=== PATIENT | male | born 1945 | race Caucasian/White ===

== ENCOUNTER 2024-10-18 03:03 | Emergency (ER) | payer OTHER ==
[~2024-10-18] VITALS: Ht 182.9 cm; Wt 90.7 kg
[2024-10-18 03:59] LABS: BASOPHILS ABSOLUTE AUTO 0.01 K/mm3 (0.00-0.23); BASOPHILS PERCENT AUTO 0 % (0-2); EOSINOPHILS PERCENT AUTO 0 % (0-6); Hemoglobin 12.8 g/dL (13.5-17.5); IMMATURE GRAN ABSOLUTE AUTO 0.02 K/mm3 (0.00-0.10); IMMATURE GRAN PERCENT AUTO 1 % (0-1); LYMPHOCYTES ABSOLUTE AUTO 0.31 K/mm3 (0.84-5.20); LYMPHOCYTES PERCENT AUTO 8 % (21-46); MONOCYTES ABSOLUTE AUTO 0.21 K/mm3 (0.16-1.47); MONOCYTES PERCENT AUTO 6 % (4-13); Mean Corpuscular HGB 29.1 pg (26.0-34.0); Mean Corpuscular HGB Conc 33.7 g/dL (31.5-36.5); Mean Corpuscular Volume 86 fL (80-100); Mean Platelet Volume 11.6 fL (9.1-12.4); NEUTROPHILS ABSOLUTE AUTO 3.21 K/mm3 (1.96-9.15); NEUTROPHILS PERCENT AUTO 85 % (41-73); Platelet Count 68 K/mm3 (150-400); RDW Standard Deviation 54.2 fL (35.1-46.3); White Blood Cell Count 3.76 K/mm3 (4.00-11.30)
[2024-10-18 04:09] LABS: Albumin, Blood 2.9 g/dL (3.4-5.0); Albumin/Globulin Ratio 0.9 (0.8-1.8); Bilirubin, Total 0.8 mg/dL (0.1-1.0); Bun/Creatinine Ratio 19.8 (12.0-20.0); Calcium, Blood 10.3 mg/dL (8.5-10.1); Creatinine, Blood 1.01 mg/dL (0.60-1.20); Globulin, Blood 3.3 g/dL (2.2-4.0); Potassium, Blood 3.5 mmol/L (3.5-5.5); Total Protein, Blood 6.2 g/dL (6.4-8.2)
[2024-10-18] MEDS ORDERED: Ondansetron HCl 2 MG / ML 2ML Vial IV ONE (04:45)
[2024-10-18] MEDS ORDERED: NS 1,000 ML IV SCH (04:45)
[2024-10-18 05:08] LABS: Magnesium, Blood 1.7 mg/dL (1.6-2.4)
[2024-10-18 05:26] LABS: Phosphorus, Blood 1.8 mg/dL (2.5-4.9)
[2024-10-18 05:30] LABS: Thyroid Stimulating Hormone 4.51 uIU/mL (0.360-4.800)
[2024-10-18] MEDS ORDERED: Potassium Phosphate Dibasic 30 MM in Dextrose 5% 500 ML IV ONE (05:45)
[2024-10-18] MEDS ORDERED: Magnesium Sulf 2 GM/Water 50ML 50 ML IV ONE (05:45)
[2024-10-18 05:46] LABS: CORONAVIRUS COVID-19 AG Negative (NEGATIVE); INFLUENZA A AG Negative (NEGATIVE); INFLUENZA B AG Negative (NEGATIVE)
[2024-10-18 06:12] LABS: Source, Urine Clean Catch
[2024-10-18 06:15] LABS: Appearance, Urine Cloudy (Clear); Bilirubin, Urine Neg (Neg); Blood, Urine 2+ (Neg); Color, Urine Yellow (P-Yellow); Glucose Qualitative, Urine Neg (Neg); Ketones, Urine Neg (Neg); Leukocyte Esterase, Urine 3+ (Neg); Nitrite, Urine Neg (Neg); Protein, Urine 3+ (Neg); Specific Gravity, Urine 1.025 (1.003-1.022); Urobilinogen, Urine NORM (Normal)
[2024-10-18 06:21] LABS: Bacteria Many /hpf; Red Blood Cells, Urine 0-2 /hpf (0-2); Squamous Epithelial Cells Rare /hpf (Few); White Blood Cells, Urine TNTC /hpf (0-5)
[2024-10-18] MEDS ORDERED: CefTRIAXone Sodium 1,000 MG in NS 50 ML IV ONE (06:40)
[2024-10-18] MEDS ORDERED: CEPH500 PO (08:32)
[2024-10-21] MEDS ORDERED: MONDOXYNE NL100 MG PO (08:42)
== END 2024-10-18 13:21 | disposition home or self-care (01) ==
LOC: ER 03:03
PROVIDERS: Emergency Medicine
DX: N39.0 Urinary tract infection, site not specified (principal); R53.1 Weakness; R79.89 Other specified abnormal findings of blood chemistry
CPT/HCPCS: 51798; 80053; 81001; 83735; 84100; 84443; 84484; 85025; 87077; 87086; 87186; 87428-QW; 93005; 93010; 96365; 96366; 96367; 96368; 96375; 99285-25; J0696; J2405; J3475; J7030; J7060

== ENCOUNTER 2024-11-25 20:09 | Emergency (ER) | payer OTHER ==
[~2024-11-25] VITALS: Ht 182.9 cm; Wt 86.2 kg
[~2024-11-25 20:09] MED LIST: CEPH500 PO; MONDOXYNE NL100 MG PO
[2024-11-25] MEDS ORDERED: METO50ER PO (20:28)
[2024-11-25] MEDS ORDERED: METF500 PO (20:28)
[2024-11-25] MEDS ORDERED: INSULIN GL300 UNIT/2 SC (20:28)
[2024-11-25] MEDS ORDERED: ASPIR 8181 M1 PO (20:29)
[2024-11-25] MEDS ORDERED: OMEP20ER PO (20:30)
[2024-11-25 21:12] LABS: Albumin, Blood 3.4 g/dL (3.4-5.0); Albumin/Globulin Ratio 1.2 (0.8-1.8); Bun/Creatinine Ratio 19.7 (12.0-20.0); Calcium, Blood 9.8 mg/dL (8.5-10.1); Creatinine, Blood 0.86 mg/dL (0.60-1.20); Globulin, Blood 2.8 g/dL (2.2-4.0); Magnesium, Blood 1.8 mg/dL (1.6-2.4); Potassium, Blood 3.4 mmol/L (3.5-5.5); Total Protein, Blood 6.2 g/dL (6.4-8.2)
[2024-11-25 21:16] LABS: BASOPHILS ABSOLUTE AUTO 0.02 K/mm3 (0.00-0.23); BASOPHILS PERCENT AUTO 1 % (0-2); EOSINOPHILS ABSOLUTE AUTO 0.06 K/mm3 (0.00-0.68); EOSINOPHILS PERCENT AUTO 2 % (0-6); Hematocrit 36.7 % (37.0-53.0); Hemoglobin 12.3 g/dL (13.5-17.5); IMMATURE GRAN ABSOLUTE AUTO 0.01 K/mm3 (0.00-0.10); IMMATURE GRAN PERCENT AUTO 0 % (0-1); LYMPHOCYTES ABSOLUTE AUTO 0.62 K/mm3 (0.84-5.20); LYMPHOCYTES PERCENT AUTO 18 % (21-46); MONOCYTES PERCENT AUTO 6 % (4-13); Mean Corpuscular HGB Conc 33.5 g/dL (31.5-36.5); Mean Corpuscular Volume 90 fL (80-100); Mean Platelet Volume 11.4 fL (9.1-12.4); NEUTROPHILS PERCENT AUTO 74 % (41-73); Platelet Count 119 K/mm3 (150-400); RDW Coefficient Variation 17.8 % (11.7-14.2); RDW Standard Deviation 58.6 fL (35.1-46.3); White Blood Cell Count 3.51 K/mm3 (4.00-11.30)
[2024-11-25] MEDS ORDERED: BACTRIM DS TAB1 EAC1 PO (21:29)
== END 2024-11-25 21:55 | disposition home or self-care (01) ==
LOC: ER 20:09
PROVIDERS: Student in an Organized Health Care Education/Training Program
DX: G56.01 Carpal tunnel syndrome, right upper limb (principal); L03.116 Cellulitis of left lower limb; L03.115 Cellulitis of right lower limb; E11.9 Type 2 diabetes mellitus without complications; K21.9 Gastro-esophageal reflux disease without esophagitis; I25.2 Old myocardial infarction; Z79.84 Long term (current) use of oral hypoglycemic drugs; Z79.82 Long term (current) use of aspirin; Z79.4 Long term (current) use of insulin; Z79.899 Other long term (current) drug therapy
CPT/HCPCS: 80053; 83735; 85025; 93005; 93010; 99284-25

== ENCOUNTER 2024-12-05 16:05 | Inpatient (IN) | payer OTHER ==
[~2024-12-05] VITALS: Ht 185.4 cm; Wt 82.5 kg
[~2024-12-05 16:05] MED LIST changes: +ASPIR 8181 M1 PO; +BACTRIM DS TAB1 EAC1 PO; +INSULIN GL300 UNIT/2 SC; +METF500 PO; +METO25ER PO; +OMEP20ER PO
[2024-12-05 16:58] LABS: BASOPHILS ABSOLUTE AUTO 0.01 K/mm3 (0.00-0.23); BASOPHILS PERCENT AUTO 0 % (0-2); EOSINOPHILS ABSOLUTE AUTO 0.01 K/mm3 (0.00-0.68); EOSINOPHILS PERCENT AUTO 0 % (0-6); Hematocrit 35.7 % (37.0-53.0); Hemoglobin 12.1 g/dL (13.5-17.5); IMMATURE GRAN ABSOLUTE AUTO 0.02 K/mm3 (0.00-0.10); IMMATURE GRAN PERCENT AUTO 1 % (0-1); LYMPHOCYTES ABSOLUTE AUTO 0.05 K/mm3 (0.84-5.20); LYMPHOCYTES PERCENT AUTO 1 % (21-46); MONOCYTES ABSOLUTE AUTO 0.11 K/mm3 (0.16-1.47); MONOCYTES PERCENT AUTO 3 % (4-13); Mean Corpuscular HGB 29.8 pg (26.0-34.0); Mean Corpuscular HGB Conc 33.9 g/dL (31.5-36.5); Mean Corpuscular Volume 88 fL (80-100); Mean Platelet Volume 12.6 fL (9.1-12.4); NEUTROPHILS ABSOLUTE AUTO 3.74 K/mm3 (1.96-9.15); NEUTROPHILS PERCENT AUTO 95 % (41-73); Platelet Count 77 K/mm3 (150-400); RDW Coefficient Variation 17.7 % (11.7-14.2); RDW Standard Deviation 57.8 fL (35.1-46.3); Red Blood Cell Count 4.06 M/mm3 (4.30-5.90); White Blood Cell Count 3.94 K/mm3 (4.00-11.30)
[2024-12-05 17:14] LABS: Albumin, Blood 3.1 g/dL (3.4-5.0); Albumin/Globulin Ratio 1.1 (0.8-1.8); Bun/Creatinine Ratio 22.9 (12.0-20.0); Calcium, Blood 9.4 mg/dL (8.5-10.1); Creatinine, Blood 1.18 mg/dL (0.60-1.20); Globulin, Blood 2.9 g/dL (2.2-4.0); Potassium, Blood 3.6 mmol/L (3.5-5.5)
[2024-12-05] MEDS ORDERED: Aspirin 325 MG Tab PO ONE (19:15)
[2024-12-05] MEDS ORDERED: Heparin Sodium 5000 Units/ML 1ML MDV IV ONE (19:20)
[2024-12-05] MEDS ORDERED: Heparin Sodium,Porcine/0.5 NS 500 ML IV SCH ×2 (19:25→20:25)
[2024-12-05 20:04] LABS: Source, Urine Clean Catch
[2024-12-05 20:14] LABS: Appearance, Urine Clear (Clear); Bilirubin, Urine Neg (Neg); Blood, Urine 1+ (Neg); Color, Urine Yellow (P-Yellow); Glucose Qualitative, Urine Neg (Neg); Ketones, Urine Neg (Neg); Leukocyte Esterase, Urine 1+ (Neg); Nitrite, Urine Neg (Neg); Protein, Urine 2+ (Neg); Urobilinogen, Urine 1+ (Normal)
[2024-12-05 20:18] LABS: Anti-Xa UFH, PHA Monitoring <0.10 IU/mL; International Normalized Ratio 1.39; Prothrombin Time Results 14.5 Sec (9.7-11.5)
[2024-12-05 20:25] LABS: Bacteria Mod /hpf; Squamous Epithelial Cells Rare /hpf (Few); Yeast/Fungi Urine Few /hpf
[2024-12-05 20:26] LABS: Mucus Light (0-Heavy)
--- NOTE | 2024-12-05 22:41 | NUR ---
REPORT RECEIVED FROM SIMRAN BORREGO RN AT 2228 AND AWAITING PT T/F TO ROOM 353.
[2024-12-05 23:02] VITALS: BP 109/63
[2024-12-05] MEDS ORDERED: NS 1,000 ML IV ONE (23:25)
[2024-12-05] MEDS ORDERED: Ondansetron HCl 2 MG / ML 2ML Vial IV PRN (23:25)
[2024-12-05] MEDS ORDERED: FLU VACC TS2024-25(6MOS UP)/PF 45 MCG/0.5 ML SYRINGE IM ONE (23:25)
[2024-12-05] MEDS ORDERED: CefTRIAXone Sodium 1,000 MG in NS 100 ML IV SCH (23:31)
[2024-12-06] MEDS ORDERED: Aspirin 81 MG Chew PO SCH
[2024-12-06] MEDS ORDERED: BACTRIM DS TAB1 EAC6 PO (00:34)
[2024-12-06] MEDS ORDERED: Acetaminophen 325 MG TABLET PO PRN (01:40)
[2024-12-06] MEDS ORDERED: FentaNYL Citrate 50 MCG/ML 2 ML Injection IV PRN (03:20)
--- NOTE | 2024-12-06 04:08 | NUR ---
ALERTED TO PT'S SUDDEN ONSET OF R.ARM/HAND PAIN THAT BEGINS IN HIS FINGERS AND RADIATES UP ARM, THROUGH BODY. HE APPEARED DIAPHORETIC, PALE AND TREMULOUS WHICH PT CONTRIBUTES TO SEVERE ARM PAIN. FENTANYL 25MCG Q4 PRN RX'D AND RECEIVED FOR MODERATE EFFECT. KPAD IN PLACE AND NOW HE'S REPORTING PAIN AT 4/10. EKG COMPLETED AND APPEARS UNCHANGED FROM ER (NSR W/BBB NOW AND ER SHOWED SAME BUT W/1ST DEGREE BLOCK WELL).
[2024-12-06 04:46] LABS: BASOPHILS ABSOLUTE AUTO 0.01 K/mm3 (0.00-0.23); BASOPHILS PERCENT AUTO 0 % (0-2); EOSINOPHILS ABSOLUTE AUTO 0.03 K/mm3 (0.00-0.68); EOSINOPHILS PERCENT AUTO 1 % (0-6); Hematocrit 36.5 % (37.0-53.0); Hemoglobin 12.1 g/dL (13.5-17.5); IMMATURE GRAN ABSOLUTE AUTO 0.03 K/mm3 (0.00-0.10); IMMATURE GRAN PERCENT AUTO 1 % (0-1); LYMPHOCYTES ABSOLUTE AUTO 0.08 K/mm3 (0.84-5.20); LYMPHOCYTES PERCENT AUTO 3 % (21-46); MONOCYTES ABSOLUTE AUTO 0.09 K/mm3 (0.16-1.47); MONOCYTES PERCENT AUTO 3 % (4-13); Mean Corpuscular HGB 29.8 pg (26.0-34.0); Mean Corpuscular HGB Conc 33.2 g/dL (31.5-36.5); Mean Corpuscular Volume 90 fL (80-100); Mean Platelet Volume 12.5 fL (9.1-12.4); NEUTROPHILS ABSOLUTE AUTO 2.55 K/mm3 (1.96-9.15); NEUTROPHILS PERCENT AUTO 91 % (41-73); Platelet Count 67 K/mm3 (150-400); RDW Coefficient Variation 17.9 % (11.7-14.2); RDW Standard Deviation 59.7 fL (35.1-46.3); Red Blood Cell Count 4.06 M/mm3 (4.30-5.90); White Blood Cell Count 2.79 K/mm3 (4.00-11.30)
[2024-12-06 04:48] VITALS: BP 110/61
[2024-12-06 05:06] LABS: Albumin, Blood 3.1 g/dL (3.4-5.0); Albumin/Globulin Ratio 1.1 (0.8-1.8); Bilirubin, Total 0.9 mg/dL (0.1-1.0); Bun/Creatinine Ratio 24.3 (12.0-20.0); Calcium, Blood 9.3 mg/dL (8.5-10.1); Creatinine, Blood 1.15 mg/dL (0.60-1.20); Globulin, Blood 2.7 g/dL (2.2-4.0); Potassium, Blood 3.5 mmol/L (3.5-5.5); Total Protein, Blood 5.8 g/dL (6.4-8.2)
[2024-12-06] MEDS ORDERED: Dose Adjust by Pharmacy XX STA ×3 (05:19→16:50)
[2024-12-06] MEDS ORDERED: Omeprazole 20 MG CapCR PO SCH (06:00)
[2024-12-06] MEDS ORDERED: Insulin Human Lispro 100 Units/ML 3ML Syringe SC SCH (07:30)
[2024-12-06 07:49] VITALS: BP 103/65
--- NOTE | 2024-12-06 07:51 | NUR ---
SUMMARY: PT T/F'D VIA GURNEY TO ROOM 353 AT 2254. HE WAS ORIENTED TO ROOM AND CALL SYSTEM AND IS BEDREST AT THIS TIME D/T INCREASED WEAKNESS AND FALLS PRECEEDING ADMIT. PT HAS BEEN UTILIZING W/C AT HOME BUT RECENTLY HASN'T BEEN ABLE TO TOLERATE WT.BEARING TO PIVOT T/F SAFELY. ABRASION NOTED TO HEAD FROM MOST RECENT FALL BUT HEAD CT WAS WNL. D.DIMER WAS 2.75 AND TROPS TRENDED UPWARD (473 THEN 569) BUT PE STUDY WAS NEGATIVE THIS SHIFT. HEPARIN GTT WAS COMMENCED AND INFUSES AT 15 UN/KG/HR (26.4 ML/HR). PT ALSO HAS POSSIBLE UTI W/IV ABX RECEIVED PER EMAR AND X1L NS INFUSING AT 100 ML/HR. HE HAD X2 IV'S REPLACED THIS SHIFT D/T BOTH PRIOR IV'S LEAKING AND NO LONGER PATENT. HE THEN C/O NEW ONSET SEVERE R.ARM PAIN RADIATING FROM FINGERTIPS UP ARM AND THROUGH BODY. HE APPEARED DIAPHORETIC, TREMULOUS AND PALE W/EKG PERFORMED SHOWING NO CHANGES FROM ER. FENTANYL WAS RX'D AND RECEIVED FOR MODERATE RELIEF AFTER TYLENOL WAS INEFFECTIVE. HE WAS INCONTINENT OF URINE T/O NOCTE BUT REPORTS HE ST.CATH QID AT BASELINE FOR RETENTION AND ONGOING UTI'S. PT REMAINS ON 2L O2 VIA NC W/SPO2 WNL BUT IS ON RA AT HOME. NO ACUTE CHANGES, VSS/AFEBRILE. REPORT PROVIDED TO DAY RN.
[2024-12-06] MEDS ORDERED: Metoprolol Succinate 50 MG TABCR PO SCH (09:00)
[2024-12-06] MEDS ORDERED: Insulin Glargine-Yfgn 100 Unit/mL 3 ML SYR SC SCH (09:00)
[2024-12-06 10:11] VITALS: BP 105/76
[2024-12-06] MEDS ORDERED: Metoprolol Succinate 25 MG TABCR PO SCH (10:20)
[2024-12-06] MEDS ORDERED: Furosemide 10 MG/ML 4ML Vial IV SCH (14:00)
[2024-12-06 15:24] VITALS: BP 104/74
[2024-12-06 19:25] VITALS: BP 109/69
--- NOTE | 2024-12-06 19:30 | NUR ---
SHIFT SUMMARY PT A&OX4. PT ADMITTED DUE TO CHF. PT RECEIVED LASIX TODAY. PT ON CONT HEPARIN DRIP, NO NEW ORDERS BY PHARMACY. PT REPORTS SOME PAIN, MANAGED PER EMAR. PT ON STRICT I'S AND O'S. PT ON TELE. PT ACHS. BLOOD SUGARS MANAGED WITH INSULIN CORRECTION. VSS. PT BED IN LOWEST POSITION, CALL LIGHT IN REACH. PT DENIED CHEST PAIN. PT VOIDING ADEQUATE. PT SBA TO TOILET.
[2024-12-06] MEDS ORDERED: NS 250 ML IV PRN (20:15)
[2024-12-07] VITALS (7 sets, daily range): BP systolic 100–113; BP diastolic 64–79
[2024-12-07] MEDS ORDERED: Melatonin 5 MG Tablet PO SCH (02:30)
--- NOTE | 2024-12-07 04:41 | NUR ---
SHIFT SUMMARY: PT AOX4 WITH SOME CONFUSION AND FORGETFULNESS. TOLERATING MEDICATIONS WELL. HAS DIFFICULTY EATING SOME OF HIS FOOD. PT EXECUTIVE STEWARD STATES THAT SHE PUREES FOOD AT HOME. TAKED MEDICATIONS FINE BUT ADMITS TO SOME DIFFICULTIES EVEN WITH SOFT BITESIZED MEAL. PT EXECUTIVE STEWARD ENDORSES THAT PT DOES HAVE SOME DIFFICULTY AND SLIGHT ASPIRATION AT HOME. PT HAD DIFFICULTY STAYING ASLEEP, MEDICATED PER EMR. PT IN BED SLEEPING, BED IN LOWEST POSITION, CALL LIGHT IN REACH. CONTINUING CARE.
[2024-12-07 05:23] LABS: Hematocrit 34.7 % (37.0-53.0); Mean Corpuscular HGB 30.5 pg (26.0-34.0); Mean Corpuscular HGB Conc 34.6 g/dL (31.5-36.5); Mean Corpuscular Volume 88 fL (80-100); Mean Platelet Volume 12.5 fL (9.1-12.4); Platelet Count 73 K/mm3 (150-400); RDW Coefficient Variation 17.4 % (11.7-14.2); RDW Standard Deviation 56.2 fL (35.1-46.3); Red Blood Cell Count 3.94 M/mm3 (4.30-5.90); White Blood Cell Count 2.13 K/mm3 (4.00-11.30)
[2024-12-07 05:41] LABS: Bun/Creatinine Ratio 28.7 (12.0-20.0); Calcium, Blood 8.9 mg/dL (8.5-10.1); Creatinine, Blood 1.01 mg/dL (0.60-1.20); Potassium, Blood 3.3 mmol/L (3.5-5.5)
[2024-12-07] MEDS ORDERED: Dose Adjust by Pharmacy XX STA (06:14)
[2024-12-07] MEDS ORDERED: Potassium Chloride 20 MEQ/15 ML UDC PO STA (07:22)
[2024-12-07] MEDS ORDERED: Empagliflozin 10 MG TAB PO SCH (09:00)
[2024-12-07] MEDS ORDERED: Furosemide 10 MG/ML 4ML Vial IV SCH (09:00)
[2024-12-07] MEDS ORDERED: Potassium Chloride 20 MEQ TabCR PO ONE (11:30)
[2024-12-07] MEDS ORDERED: Sertraline HCl 50 MG Tab PO SCH (16:00)
--- NOTE | 2024-12-07 18:00 | NUR ---
SHIFT SUMMARY PATIENT ALERT AND INTERACTIVE BUT VERY HARD OF HEARING. HEPARIN GTT DC'D PER CARDIOLOGY. PATIENT DIURESING WITH LASIX WITH GOOD RESPONSE.
[2024-12-08 03:21] VITALS: BP 112/77
[2024-12-08 06:16] LABS: Hematocrit 36.4 % (37.0-53.0); Hemoglobin 12.2 g/dL (13.5-17.5); Mean Corpuscular HGB 29.9 pg (26.0-34.0); Mean Corpuscular HGB Conc 33.5 g/dL (31.5-36.5); Mean Corpuscular Volume 89 fL (80-100); Mean Platelet Volume 12.4 fL (9.1-12.4); Platelet Count 75 K/mm3 (150-400); RDW Coefficient Variation 17.3 % (11.7-14.2); RDW Standard Deviation 57.1 fL (35.1-46.3); Red Blood Cell Count 4.08 M/mm3 (4.30-5.90); White Blood Cell Count 2.36 K/mm3 (4.00-11.30)
[2024-12-08 06:33] LABS: Bun/Creatinine Ratio 23.9 (12.0-20.0); Calcium, Blood 9.5 mg/dL (8.5-10.1); Creatinine, Blood 0.96 mg/dL (0.60-1.20); Potassium, Blood 3.8 mmol/L (3.5-5.5)
[2024-12-08 07:38] VITALS: BP 105/73
[2024-12-08] MEDS ORDERED: Losartan Potassium 25 MG Tab PO SCH (09:00)
[2024-12-08 11:12] VITALS: BP 114/67
[2024-12-08] MEDS ORDERED: FURO40 PO (14:13)
[2024-12-08] MEDS ORDERED: ALLO100 PO (14:14)
[2024-12-08] MEDS ORDERED: LORA10ER PO (14:15)
[2024-12-08] MEDS ORDERED: Crestor40 MG PO (14:15)
[2024-12-08] MEDS ORDERED: LACT PO (14:16)
[2024-12-08 15:17] VITALS: BP 102/59
--- NOTE | 2024-12-08 17:39 | NUR ---
SHIFT SUMMARY PATIENT ALERT AND INTERACTIVE BUT VERY HARD OF HEARING. PATIENT SPENT MOST OF DAY IN RECLINER. PATIENT SLEEPS IN RECLINER AT HOME. PATIENT ABLE TO AMBULATE FOR SHOWER. CONTINUE TO ATTEMPT TO DIURESE PATIENT BUT PATIENT FREQUENTLY REQUESTING FLUIDS. PATIENT FORGETFUL. DAUGHTER STATES THAT PATIENT IS CONFUSED.
[2024-12-08 19:11] VITALS: BP 110/72
[2024-12-08 23:41] VITALS: BP 117/77
[2024-12-09 04:56] VITALS: BP 113/77
--- NOTE | 2024-12-09 05:33 | NUR ---
PT A&OX4, COOPERATIVE. PERRL, SPEECH IS CLEAR. RELIABILITY SPECIALIST ARE EQUAL X 4. PPP TELE IN PLACE SR @71 WITH FIRST DEGREE BBB TRACE EDEMA BLE, ABD SOFT AND NONTENDER, BTX4. BLBS ARE CLEAR AN DUNLABORED, NO SOB NOTED. PURWICK IN PLACE DRAINING CLEAR YELLOW URINE. PT SLEPT IN RECLINER T/O THE NIGHT. DENIES PAIN OR NEEDS AT THIS TIME.
[2024-12-09 06:44] LABS: Bilirubin, Direct 0.2 mg/dL (0.0-0.3); Bilirubin, Indirect 0.5 mg/dL (0.1-0.7); Bilirubin, Total 0.7 mg/dL (0.1-1.0)
[2024-12-09 07:58] VITALS: BP 110/63
[2024-12-09 08:02] LABS: Bun/Creatinine Ratio 24.9 (12.0-20.0); Calcium, Blood 9.6 mg/dL (8.5-10.1); Creatinine, Blood 0.92 mg/dL (0.60-1.20); Potassium, Blood 3.8 mmol/L (3.5-5.5)
[2024-12-09] MEDS ORDERED: Spironolactone 12.5 MG TAB PO SCH (09:00)
[2024-12-09] MEDS ORDERED: Ciprofloxacin 500 MG Tab PO SCH (09:00)
[2024-12-09] MEDS ORDERED: Ezetimibe 10 MG Tab PO SCH (09:00)
[2024-12-09] MEDS ORDERED: Torsemide 20 MG TAB PO SCH (10:00)
--- NOTE | 2024-12-09 12:06 | NUR ---
MET WITH PATIENT TO DISCUSS CODE STATUS AND COMPLETE A POLST. REVIEWED OPTION AND IMPLICATIONS OF THOSE CHOICES. PATIENT REPORTED HE WOULD BE OK WITH CHEST COMPRESSIONS IF IT "ONLY TOOK A COUPLE COMPRESSIONS AND HE WOULDN'T END UP WITH BRAIN DAMAGE". WE DISCUSSED THE UNKNOWN OUTCOMES AND WHAT THE DIFFERENT OUTCOMES COULD LOOK LIKE. PATIENT ELECTED FOR DNR AND SELECTIVE TREATMENT. COMPLETED POLST, COPY SENT TO REGISTRY, MEDICAL RECORDS, AND ORIGIONAL PLACED IN CHART.
[2024-12-09 12:41] VITALS: BP 107/68
[2024-12-09 15:50] VITALS: BP 118/70
--- NOTE | 2024-12-09 16:09 | NUR ---
SHIFT SUMMARY PT IS A/OX4. HARD OF HEARING, HAS HEARING AIDS, AND MUMBLED SPEECH. PT IS A 1-2 PERSON ASSIST. PT IS ON RA, SATS MAINTAINING >92%. ON TELE RUNNING SINUS RYTHYM W/BBB, 1 DEGREE AV BLOCK, AND PAC IN THE 60'S. PURWICK IN PLACE. MINCED AND MOIST DIET, NECTAR THICK LIQUIDS, AND MEDS WHOLE W/ APPLESAUCE R/T HAVING LIMITED TEETH AND SWALLOWING DIFFICULTIES. PT IS PLEASANT AND COOPERATIVE WITH CARE AND CALLS APPROPRIATELY USING THE CALL LIGHT.
--- NOTE | 2024-12-09 18:15 | NUR ---
PT TRANSFERED TO ROOM 327.
--- NOTE | 2024-12-09 19:05 | NUR ---
TRANSFER NOTE PT TRANSFERED TO 327 FROM 353. PT TRANSFERED AT 1800 VIA BED. PT A&OX4. PT ADMITTED DUE TO CHF. PERSONAL BELONGINGS IN ROOM. PT ORIENTED TO ROOM/FALL PRECAUTIONS/ CALL LIGHT, TELE NOTIFIED TRANSFER. PT ON TELE. PT IS SBA WITH FWW. PT HAS MALE PERWICK DUE TO INC. PT IS IN BED. BED IN LOWEST POSITION, CALL LIGHT IN REACH.
[2024-12-09 21:54] VITALS: BP 98/68
[2024-12-09] MEDS ORDERED: Naproxen 500 MG Tab PO ONE (22:45)
[2024-12-09] MEDS ORDERED: Melatonin 5 MG Tablet PO ONE (22:45)
--- NOTE | 2024-12-09 22:45 | NUR ---
NEW T-ORDERS RECEIVED FROM THE ON-CALL HOSPITALIST NP. HIGGINBOTHAM: -NAPROXEN 500MG PO X1 -MELATONIN 5MG PO X1. ENTERED TO [employer], SEE EMAR.
[2024-12-10 00:34] VITALS: BP 107/62
--- NOTE | 2024-12-10 02:27 | NUR ---
SBAR GIVEN TO EVANS ANDERS WHO WILL RESUME CARE @1118. PROTEIN SCIENTIST AWARE.
[2024-12-10 04:23] VITALS: BP 105/65
[2024-12-10 05:06] LABS: Bun/Creatinine Ratio 28.8 (12.0-20.0); Creatinine, Blood 1.11 mg/dL (0.60-1.20)
[2024-12-10 07:36] VITALS: BP 120/78
[2024-12-10] MEDS ORDERED: SOAANZ20 M1 PO (11:47)
[2024-12-10] MEDS ORDERED: 1/2 NS 250ml250 ML (11:47)
[2024-12-10] MEDS ORDERED: CIPR500 PO (11:53)
[2024-12-10] MEDS ORDERED: EZET10 PO (11:54)
[2024-12-10] MEDS ORDERED: JARDIANCE10 MG PO (11:54)
[2024-12-10] MEDS ORDERED: HUMALOG KW100 UNIT/1 SC (12:07)
[2024-12-10] MEDS ORDERED: MELATONIN5 M1 PO (12:08)
[2024-12-10] MEDS ORDERED: LOSA25 PO (12:08)
[2024-12-10] MEDS ORDERED: SERT50 PO (12:09)
[2024-12-10] MEDS ORDERED: SPIRONOLACTONE1 EACH PO (12:10)
--- NOTE | 2024-12-10 15:35 | NUR ---
PRIMARY RN, LUIS ALFREDO, CALLED REPORT TO [facility] WHEN TRANSPORTATION ARRIVED. EVANS LOBATO, WAS TOLD BY SILVIO @ [facility] THAT SHE HAD NO RECORD OF PATIENT BEING ADMITTED. THERE IS ANOTHER PATIENT WITH A SIMILAR NAME WHO WAS ACCEPTED, BUT NO RECORD OF THIS PATIENT. ATTEMPTING TO REACH ROSIE JARAMILLO CM RN c ABOVE INFO.
[2024-12-10 16:40] VITALS: BP 98/63
--- NOTE | 2024-12-10 19:57 | NUR ---
DISCHARGE NOTE PT A&OX4. PT ADMITTED DUE TO CHF. PT IS SBA WITH FWW. PT INC OF URINE. PT CONT OF BM. VSS. PT REPORTS NO PAIN. PT ON ROOM AIR. IV D/C. TELE D/C. ATTEMPTED TO CALL DAUGHTER DURING SHIFT TO NOTIFY ABOUT TRANSFER TODAY, NO ANSWER. PT ON MINCED AND MOIST DIET. TAKES MEDS WHOLE WITH APPLESAUCE. PT DRINKS FLUIDS NECTURE THICK. FIELD LABORER SET UP TRANSFER FOR 1700. CALLED TO GIVE REPORT TO UVR AT 1445, UVR STATED "UNKNOWN OF PT." TRANSPORT WAS POSTPONED. DEPUTY ADMINISTRATOR NOTIFIED WITH FIELD LABORER. UVR CALLED FLOOR AT 1800 STATING "SEE APPROVAL OF PT AND PT IN SYSTEM AND CALLING FOR REPORT." DEPUTY ADMINISTRATOR NOTIFIED, GAVE REPORT TO UVR, PER UVR REQUEST. PT LEFT WITH SID. TRANSPORT CAME TO ESCORT PT AT 1825. PT TRANSFERED BY WHEELCHAIR. DISCHARGE INSTRUCTIONS LEFT WITH PT.
== END 2024-12-10 18:47 | DRG 698 ==
LOC: ER 16:05 → MEDS 16:06 → ERHOLD 16:06 → MEDS 22:50 → ENPENDDIS 12-10 17:25 → MEDS 12-10 18:47
PROVIDERS: Internal Medicine; Student in an Organized Health Care Education/Training Program; ADMIT Internal Medicine
PROC: 3E03329 Introduction of Other Anti-infective into Peripheral Vein, Percutaneous Approach (ICD-10-PCS; 2024-12-05)
PROC: 0T9B70Z Drainage of Bladder with Drainage Device, Via Natural or Artificial Opening (ICD-10-PCS; principal; 2024-12-06)
DX: T83.518A Infection and inflammatory reaction due to other urinary catheter, initial encounter (principal); A41.59 Other Gram-negative sepsis; I50.21 Acute systolic (congestive) heart failure; I21.A1 Myocardial infarction type 2; N39.0 Urinary tract infection, site not specified; J96.11 Chronic respiratory failure with hypoxia; I25.10 Atherosclerotic heart disease of native coronary artery without angina pectoris; Z99.3 Dependence on wheelchair; Z28.21 Immunization not carried out because of patient refusal; E11.9 Type 2 diabetes mellitus without complications; I10 Essential (primary) hypertension; K21.9 Gastro-esophageal reflux disease without esophagitis; D69.6 Thrombocytopenia, unspecified; F43.10 Post-traumatic stress disorder, unspecified; I44.7 Left bundle-branch block, unspecified; N40.1 Benign prostatic hyperplasia with lower urinary tract symptoms; R33.8 Other retention of urine; Z95.1 Presence of aortocoronary bypass graft; Z79.82 Long term (current) use of aspirin; Z79.899 Other long term (current) drug therapy; Z79.84 Long term (current) use of oral hypoglycemic drugs; Z88.8 Allergy status to other drugs, medicaments and biological substances
CPT/HCPCS: 36415; 70450; 71046; 71260; 80048; 80053; 81001; 82248; 82947; 83880; 84484; 85025; 85027; 85379; 85520; 85610; 87077; 87086; 87186; 92526; 92610; 93005; 93010; 93306; 94760; 96365; 96374; 96375; 96376; 97110; 97116; 97162; 97165; 97530; 97535; 99285-25; A9270; G0378; J0696; J1644; J1815; J1940; J3010; J7030; J7050; Q9967

== ENCOUNTER 2025-02-03 17:26 | Emergency (ER) | payer OTHER ==
[~2025-02-03] VITALS: Ht 185.4 cm; Wt 75.3 kg
[~2025-02-03 17:26] MED LIST changes: +1/2 NS 250ml250 ML; +ALLO100 PO; +BACTRIM DS TAB1 EAC6 PO; +CIPR500 PO; +Crestor40 MG PO; +EZET10 PO; +FURO40 PO; +HUMALOG KW100 UNIT/1 SC; +JARDIANCE10 MG PO; +LACT PO; +LORA10ER PO; +LOSA25 PO; +MELATONIN5 M1 PO; +SERT50 PO; +SOAANZ20 M1 PO; +SPIRONOLACTONE1 EACH PO
[2025-02-03 18:05] LABS: BASOPHILS ABSOLUTE AUTO 0.02 K/mm3 (0.00-0.23); BASOPHILS PERCENT AUTO 0 % (0-2); EOSINOPHILS ABSOLUTE AUTO 0.02 K/mm3 (0.00-0.68); EOSINOPHILS PERCENT AUTO 0 % (0-6); Hematocrit 41.4 % (37.0-53.0); Hemoglobin 14.1 g/dL (13.5-17.5); IMMATURE GRAN ABSOLUTE AUTO 0.06 K/mm3 (0.00-0.10); IMMATURE GRAN PERCENT AUTO 1 % (0-1); LYMPHOCYTES ABSOLUTE AUTO 1.25 K/mm3 (0.84-5.20); LYMPHOCYTES PERCENT AUTO 10 % (21-46); MONOCYTES ABSOLUTE AUTO 0.46 K/mm3 (0.16-1.47); MONOCYTES PERCENT AUTO 4 % (4-13); Mean Corpuscular HGB 29.1 pg (26.0-34.0); Mean Corpuscular HGB Conc 34.1 g/dL (31.5-36.5); Mean Corpuscular Volume 85 fL (80-100); Mean Platelet Volume 10.3 fL (9.1-12.4); NEUTROPHILS ABSOLUTE AUTO 10.66 K/mm3 (1.96-9.15); NEUTROPHILS PERCENT AUTO 85 % (41-73); Platelet Count 195 K/mm3 (150-400); RDW Coefficient Variation 14.5 % (11.7-14.2); RDW Standard Deviation 44.8 fL (35.1-46.3); Red Blood Cell Count 4.85 M/mm3 (4.30-5.90); White Blood Cell Count 12.47 K/mm3 (4.00-11.30)
[2025-02-03 18:26] LABS: Magnesium, Blood 1.9 mg/dL (1.6-2.4)
[2025-02-03 18:31] LABS: Albumin, Blood 2.6 g/dL (3.4-5.0); Albumin/Globulin Ratio 0.6 (0.8-1.8); Bilirubin, Total 0.7 mg/dL (0.1-1.0); Bun/Creatinine Ratio 25.8 (12.0-20.0); Calcium, Blood 10.3 mg/dL (8.5-10.1); Creatinine, Blood 1.82 mg/dL (0.60-1.20); Globulin, Blood 4.6 g/dL (2.2-4.0); Phosphorus, Blood 2.5 mg/dL (2.5-4.9); Potassium, Blood 3.4 mmol/L (3.5-5.5); Thyroid Stimulating Hormone 9.58 uIU/mL (0.360-4.800); Total Protein, Blood 7.2 g/dL (6.4-8.2)
[2025-02-03 18:51] LABS: Free Thyroxine 0.95 ng/dL (0.70-1.60)
[2025-02-03 18:53] LABS: Triiodothyronine, Free 1.38 pg/mL (2.18-3.98)
[2025-02-03 18:56] LABS: Adenovirus Not Detected (NOT DETECT); Bordetella pertussis Not Detected (NOT DETECT); Chlamydophila pneumoniae Not Detected (NOT DETECT); Coronavirus 229E Not Detected (NOT DETECT); Coronavirus HKU1 Not Detected (NOT DETECT); Coronavirus NL63 Not Detected (NOT DETECT); Coronavirus OC43 Not Detected (NOT DETECT); Human Metapneumovirus Not Detected (NOT DETECT); Human Rhinovirus/Enterovirus Not Detected (NOT DETECT); Influenza A/2009-H1 Not Detected (NOT DETECT); Influenza A/H1 Not Detected (NOT DETECT); Influenza A/H3 Not Detected (NOT DETECT); Influenza B Not Detected (NOT DETECT); Mycoplasma pneumoniae Not Detected (NOT DETECT); Parainfluenza Virus 1 Not Detected (NOT DETECT); Parainfluenza Virus 2 Not Detected (NOT DETECT); Parainfluenza Virus 3 Not Detected (NOT DETECT); Parainfluenza Virus 4 Not Detected (NOT DETECT); Respiratory Syncytial Virus Not Detected (NOT DETECT); SARS-Cov-2 (COVID-19), BioFire Not Detected (NOT DETECT)
[2025-02-03] MEDS ORDERED: NS 1,000 ML IV SCH (21:00)
[2025-02-03 23:26] LABS: Source, Urine Clean Catch
[2025-02-03 23:38] LABS: Appearance, Urine Cloudy (Clear); Bilirubin, Urine Neg (Neg); Blood, Urine 3+ (Neg); Color, Urine Yellow (P-Yellow); Glucose Qualitative, Urine Neg (Neg); Ketones, Urine Neg (Neg); Leukocyte Esterase, Urine 2+ (Neg); Nitrite, Urine Pos (Neg); Protein, Urine 3+ (Neg); Specific Gravity, Urine 1.015 (1.003-1.022); Urobilinogen, Urine NORM (Normal)
[2025-02-03 23:56] LABS: Bacteria Many /hpf; Red Blood Cells, Urine 0-2 /hpf (0-2); Squamous Epithelial Cells Mod /hpf (Few); White Blood Cells, Urine 50-100 /hpf (0-5)
[2025-02-04] MEDS ORDERED: CEPH500 PO (01:14)
[2025-02-04] MEDS ORDERED: CefTRIAXone Sodium 1,000 MG in NS 100 ML IV ONE (01:15)
== END 2025-02-04 02:18 | disposition home or self-care (01) ==
LOC: ER 17:26
PROVIDERS: Student in an Organized Health Care Education/Training Program
DX: N39.0 Urinary tract infection, site not specified (principal); R53.1 Weakness; R79.89 Other specified abnormal findings of blood chemistry; E11.9 Type 2 diabetes mellitus without complications; E78.5 Hyperlipidemia, unspecified; Z87.891 Personal history of nicotine dependence; Z79.4 Long term (current) use of insulin; Z79.899 Other long term (current) drug therapy; Z79.84 Long term (current) use of oral hypoglycemic drugs; Z79.82 Long term (current) use of aspirin; Z88.8 Allergy status to other drugs, medicaments and biological substances
CPT/HCPCS: 0202U; 71046; 74176; 80053; 81001; 83690; 83735; 84100; 84439; 84443; 84481; 85025; 87077; 87086; 87186; 96361; 96365; 99284-25; J0696; J7030

== ENCOUNTER 2025-02-09 10:13 | Inpatient (IN) | payer OTHER, MEDICARE ==
[2025-02-09] VITALS (8 sets, daily range): BP systolic 70–100; BP diastolic 34–69
[~2025-02-09] VITALS: Ht 188 cm; Wt 81.8 kg
[2025-02-09 10:36] LABS: BASOPHILS ABSOLUTE AUTO 0.02 K/mm3 (0.00-0.23); BASOPHILS PERCENT AUTO 0 % (0-2); EOSINOPHILS ABSOLUTE AUTO 0.02 K/mm3 (0.00-0.68); EOSINOPHILS PERCENT AUTO 0 % (0-6); Hematocrit 39.5 % (37.0-53.0); Hemoglobin 13.3 g/dL (13.5-17.5); IMMATURE GRAN ABSOLUTE AUTO 0.06 K/mm3 (0.00-0.10); IMMATURE GRAN PERCENT AUTO 0 % (0-1); LYMPHOCYTES ABSOLUTE AUTO 0.24 K/mm3 (0.84-5.20); LYMPHOCYTES PERCENT AUTO 2 % (21-46); MONOCYTES ABSOLUTE AUTO 0.11 K/mm3 (0.16-1.47); MONOCYTES PERCENT AUTO 1 % (4-13); Mean Corpuscular HGB 29.1 pg (26.0-34.0); Mean Corpuscular HGB Conc 33.7 g/dL (31.5-36.5); Mean Corpuscular Volume 86 fL (80-100); Mean Platelet Volume 10.9 fL (9.1-12.4); NEUTROPHILS ABSOLUTE AUTO 13.13 K/mm3 (1.96-9.15); NEUTROPHILS PERCENT AUTO 97 % (41-73); Platelet Count 135 K/mm3 (150-400); RDW Coefficient Variation 15.3 % (11.7-14.2); RDW Standard Deviation 47.5 fL (35.1-46.3); Red Blood Cell Count 4.57 M/mm3 (4.30-5.90); White Blood Cell Count 13.58 K/mm3 (4.00-11.30)
[2025-02-09 10:58] LABS: Albumin, Blood 2.3 g/dL (3.4-5.0); Albumin/Globulin Ratio 0.5 (0.8-1.8); Bilirubin, Total 0.6 mg/dL (0.1-1.0); Bun/Creatinine Ratio 21.8 (12.0-20.0); Calcium, Blood 10.8 mg/dL (8.5-10.1); Creatinine, Blood 1.79 mg/dL (0.60-1.20); Globulin, Blood 4.2 g/dL (2.2-4.0); Potassium, Blood 3.9 mmol/L (3.5-5.5); Total Protein, Blood 6.5 g/dL (6.4-8.2)
[2025-02-09 11:03] LABS: Source, Urine Straight Cath
[2025-02-09 11:15] LABS: Appearance, Urine Turbid (Clear); Bilirubin, Urine Neg (Neg); Blood, Urine 4+ (Neg); Color, Urine Yellow (P-Yellow); Glucose Qualitative, Urine 2+ (Neg); Ketones, Urine Neg (Neg); Leukocyte Esterase, Urine 3+ (Neg); Nitrite, Urine Pos (Neg); Protein, Urine 2+ (Neg); Specific Gravity, Urine 1.015 (1.003-1.022); Urobilinogen, Urine NORM (Normal)
[2025-02-09 11:33] LABS: Squamous Epithelial Cells Rare /hpf (Few)
[2025-02-09 11:34] LABS: Bacteria Many /hpf; Red Blood Cells, Urine 50-100 /hpf (0-2); White Blood Cells, Urine 50-100 /hpf (0-5)
[2025-02-09] MEDS ORDERED: CefTRIAXone Sodium 1,000 MG in NS 100 ML IV ONE (11:40)
[2025-02-09] MEDS ORDERED: NS 1,000 ML IV SCH ×3 (11:50→16:10)
[2025-02-09] MEDS ORDERED: Insulin Human Lispro 100 Units/ML 3ML Syringe SC SCH (16:30)
[2025-02-09] MEDS ORDERED: NS 500 ML IV ONE ×2 (18:30→21:10)
[2025-02-09] MEDS ORDERED: ZINC OXIDE/PETROLATUM, YELLOW 1 APPLIC/71 GM PASTE TOP PRN (18:45)
--- NOTE | 2025-02-09 20:01 | NUR ---
ADMIT NOTE PATIENT BROUGHT UP FROM ER. PHOTOS TAKEN OF WOUNDS TO BACK AND BUTTOCKS. MEPILEX'S PLACED. RED/BOGGY HEELS MEPILEX PLACED TO BILATERAL HEELS. MAIN FLUDIS STARTED. VITALS TAKEN AND WERE RUNNING SOFT IN ER BUT INITALLY ON UNIT READ 91/69, HR LOW 100'S, OXYGEN SATS IN THE MID 80'S ON ROOM AIR. SLIGHLTY TACHYPNIC AT 20. 2L NC PLACED AND BROUGHT SATS UP TO 91%. NOTIFIED DR. CRYSTAL WHO ORDERED 500 ML BOLUS AND THEN TO CONTINUE MAINT FLUDIS, BEING CONSERVATIVE DUE TO HEART FAILURE. HE ALSO ORDERED PATEINT TO BE TRANSFERRED TO PCU TO THE INCREASE IN OXYGEN NEED, DECREASE IN B/P, AND SLIGHT INCREASE IN LACTIC FROM 4.9 TO 5.1. AND TO NOTIFY CHEMIST ORGANIC IF PATIENT SEEMS TO WORSEN TO COME RE-EVALUATE. PENDING BED IN PCU. PT HOB SLIGHTLY ELEVATED. DAUGHTER IS AT BEDSIDE DURING BEDSIDE SHIFT REPORT. WAS UNABLE TO COMPLETE HEALTH HISTORY AND MED-REC INTIALLY DUE TO PATIENT BEING POORT HISTORIAN AND DAUGHTER NOT AT BEDSIDE. PT A/OX2. CONFUSED ON SITUATION AND TIME, STATES IT WAS "1994" . ER REPORTED THEY HAD TO STRAIGHT CATH PATIENT DUE TO RETENTION, NOT DOCUMENTED IN THEIR NOTE, SO UNSURE OF TIME OR VOLUME. DID NOT HAVE TIME THIS SHIFT TO GET BLADDER SCAN, PASSED ON TO [employer] INTER[employer] CONTRACTING SUPPORT SPECIALIST IF SHE COULD COLLECT ONE. PATINET ON MALE PUREWICK WITH MINIMAL OUTPUT. INCONTINENT OF BOWEL AND BLADDER OF THE LAST MONTH PER DAUGHTER WHERE HE HAS JUST SEEMED TO BE CONTINUOULSY DECLINING. PT WAS AMBULATING WITH WALKER AND SHOWERING/DRESSING HIMSELF A MONTH AGO.
--- NOTE | 2025-02-09 20:32 | NUR ---
NEW T-ORDER FOR TYLENOL PO PRN 650MG Q6HRS RECEIVED FROM THE ON-CALL HOSPITALIST DR. MACARIO. ENTERED TO [employer], SEE EMAR.
[2025-02-09] MEDS ORDERED: Acetaminophen 325 MG TABLET PO PRN (20:35)
[2025-02-09] MEDS ORDERED: Famotidine 20 MG Tab PO SCH (21:00)
[2025-02-09] MEDS ORDERED: Lactobacil 2-S.Thermo-Bifido 1 1 Cap PO SCH (21:00)
[2025-02-09] MEDS ORDERED: Heparin Sodium,Porcine 5,000 UNIT/0.5 ML SDV SC SCH (21:00)
[2025-02-10] VITALS (19 sets, daily range): BP systolic 89–111; BP diastolic 55–78
[2025-02-10 05:03] LABS: Bun/Creatinine Ratio 24.7 (12.0-20.0); Calcium, Blood 9.7 mg/dL (8.5-10.1); Creatinine, Blood 1.62 mg/dL (0.60-1.20); Potassium, Blood 3.7 mmol/L (3.5-5.5)
--- NOTE | 2025-02-10 05:51 | NUR ---
PT'S RECEIVED 500ML BOLUS OF NS ON ARRIVAL TO THE FLOOR.BP REMAIN SOFT, SBP 90S-100S.JUNCTIONAL HEART RHYTHM ON THE MONITOR,HR 90'S-100'S.DR PICHARDO NOTIFIED OF THE JUNCTIONAL RHYTHM,NO NEW ORDER GIVEN. STATES TO MONITOR PT.PT VOIDED LITTLE AMOUNT OF URINE AT MIDNIGHT,BLADDER SCANNER REVEALED A PVR OF 399ML.PT STRAIGHT CATHED,400ML OF YELLOW URINE OBTAINIED.CALL LIGHT AND PT'S ITEMS WITHIN REACH.MONITORING ONGOING PER CARE PLAN .
[2025-02-10] MEDS ORDERED: NS 1,000 ML IV SCH ×2 (08:00→19:50)
[2025-02-10] MEDS ORDERED: CefTRIAXone Sodium 1,000 MG in NS 100 ML IV SCH (12:00)
[2025-02-10 16:01] LABS: Bun/Creatinine Ratio 25.5 (12.0-20.0); Calcium, Blood 9.2 mg/dL (8.5-10.1); Creatinine, Blood 1.49 mg/dL (0.60-1.20); Potassium, Blood 3.7 mmol/L (3.5-5.5)
--- NOTE | 2025-02-10 16:37 | NUR ---
DR THOMAS OF [place].3
--- NOTE | 2025-02-10 19:25 | NUR ---
ASSUMPTION OF CARE PT AWAKE AND ALERT WATCHING TV.PLAN OF CARE REVIEWED.PT DENIES PAIN,DENIES NEEDS.CALL LIGHT AND PTS ITEMS WITHIN REACH.MONITORING ONGOING PER CAREPLAN.
[2025-02-11] VITALS (8 sets, daily range): BP systolic 97–111; BP diastolic 61–68
[2025-02-11 05:38] LABS: Bun/Creatinine Ratio 24.6 (12.0-20.0); Calcium, Blood 8.8 mg/dL (8.5-10.1); Creatinine, Blood 1.34 mg/dL (0.60-1.20); Potassium, Blood 3.7 mmol/L (3.5-5.5)
--- NOTE | 2025-02-11 06:48 | NUR ---
PT MONITORED DURING THE SHIFT,VITAL SIGNS STABLE.PT REPORTS THAT HE FEELS BETTER.STRAIGHT CATHED ONCE THIS SHIFT FOR PVR OF 401ML.LATER IN THE SHIFT PT WAS INCONTINENT OF LARGE AMOUNT OF URINE THAT SOAKED THE BRIEF,PAD AND WENT THROUGHT THE SHEETS.PT INCONTINENT OF BOWEL MULTIPLE TIMES DURING THE SHIFT. PLACED A MALE PUREWICK FOR URINE COLLECTION.PT DENIES PAIN,DENIES NEEDS.CALL LIGHT AND PT'S ITEMS WITHIN REACH.BED ALARM IN USE FOR FALL PREVENTION SAFETY.
[2025-02-11] MEDS ORDERED: Metoprolol Succinate 25 MG TABCR PO SCH (09:00)
[2025-02-11] MEDS ORDERED: Empagliflozin 10 MG TAB PO SCH (09:00)
--- NOTE | 2025-02-11 10:14 | NUR ---
SHIFT UPDATE AND TRANSFER NOTE PT REPORT GIVEN TO IVETT KRUEGER ON MEDICAL FLOOR AND DAUGHTER, BENIGNO UPDATED TO PT STATUS AND TRANSFER. PT TRANSFERRED TO ROOM 346 VIA BED WITH ALL PERSONAL BELONGINGS BY VTC TECHNICIAN X3. DAUGHTER NOTIFIED OF PT EVAL AND SUGGESTION OF SHORT TERM PLACEMENT IN A FACILITY TO CONTINUE PT AND REHABILITATION FOR INCREASED STRENGTH. DAUGHTER IS AGREEABLE TO THIS PLAN AND REQUESTS THAT CASE MANAGEMENT REACH OUT THROUGH [facility]. CASE MANAGEMENT CONSULTED THIS MORNING FOR ASSISTANCE COORDINATING CARE.
[2025-02-11] MEDS ORDERED: Meropenem 1,000 MG in NS 100 ML IV SCH (12:00)
--- NOTE | 2025-02-11 19:29 | NUR ---
PT TRANSFERRED TO ROOM THIS AM. PLEJAYE COOP. PLACED NEW PUREWICK SYSTEM, RETURENED TELE, D/C'D. PT DENIES PAIN AT THIS TIME. ON R.A. RESP EASY, UNLABORED. VISITING PLEASANTLY. NO NEW CONCERNS NOTED. BED INLOW POSITION, CALLLITE IN REACH, CALLS APPROP
--- NOTE | 2025-02-12 04:03 | NUR ---
SHIFT SUMMARY PATIENT HAS APPEARED TO SLEEP COMFORTABLY TONIGHT. IV ABX HAVE INFUSED WITHOUT COMPLICATIONS. C PAP IS IN PLACE. VITAL SIGNS HAVE BEEN STABLE. PATIENT HAS A PUREWICK IN PLACE. CALL LIGHT IS WITHIN REACH AND BED ALARM IS SET. SAFETY PRECAUTIONS ARE BEING MAINTAINED.
[2025-02-12 07:10] LABS: Hematocrit 31.4 % (37.0-53.0); Hemoglobin 10.5 g/dL (13.5-17.5); Mean Corpuscular HGB 29.2 pg (26.0-34.0); Mean Corpuscular HGB Conc 33.4 g/dL (31.5-36.5); Mean Corpuscular Volume 87 fL (80-100); Mean Platelet Volume 10.6 fL (9.1-12.4); Platelet Count 122 K/mm3 (150-400); RDW Coefficient Variation 15.4 % (11.7-14.2); RDW Standard Deviation 48.7 fL (35.1-46.3)
[2025-02-12 07:24] VITALS: BP 106/74
[2025-02-12 07:24] LABS: Bun/Creatinine Ratio 26.9 (12.0-20.0); Calcium, Blood 9.6 mg/dL (8.5-10.1); Creatinine, Blood 1.19 mg/dL (0.60-1.20); Potassium, Blood 3.2 mmol/L (3.5-5.5)
[2025-02-12] MEDS ORDERED: Potassium Chloride 20 MEQ TabCR PO ONE (07:40)
[2025-02-12] MEDS ORDERED: Ezetimibe 10 MG Tab PO SCH (09:00)
[2025-02-12] MEDS ORDERED: Losartan Potassium 25 MG Tab PO SCH (09:00)
[2025-02-12] MEDS ORDERED: Spironolactone 12.5 MG TAB PO SCH (09:00)
--- NOTE | 2025-02-12 17:25 | NUR ---
PT PLEASANT TODAY. DID TALK WITH DAUGHTER RE PLACEMENT NOTATIONS. SHE IS BELIEVING SHE CAN CARE FOR PT AND ALSO HAS ADDITIONAL HELP FOR EVENINGS. ENCOURAGED PT TO BE ON HIS SIDES, TO RELEIVE THE PRESSURE ON BOTTOM. THIS TO ASSIST IN HEALING OF WOUNDS. NO OTHER CONCERNS NOTED. BED IN LOW POSITION, CALL LITE IN REACH, CALLS APPROP
[2025-02-12 17:30] VITALS: BP 112/76
--- NOTE | 2025-02-13 03:53 | NUR ---
SHIFT SUMMARY PATIENT APPPERS TO BE RESTING COMFORTABLY TONIGHT. WOUND CARE WAS DONE. COCCXY WOUND IS EXCORIATED AND WAS BLEEDING A LITTLE. PUREWICK CATHETER IS IN PLACE. VITAL SIGNS ARE STABLE. IV ABX HAVE INFUSED WITHOUT COMPLICATIONS. PATIENT HAS HIS CALL LIGHT WITHIN REACH AND THE BED ALARM IS SET. SAFETY PRECAUTIONS ARE BEING MAINTAINED.
[2025-02-13 05:40] VITALS: BP 90/70
[2025-02-13 07:07] LABS: Bun/Creatinine Ratio 30.5 (12.0-20.0); Calcium, Blood 10.3 mg/dL (8.5-10.1); Creatinine, Blood 1.05 mg/dL (0.60-1.20); Potassium, Blood 3.7 mmol/L (3.5-5.5)
--- NOTE | 2025-02-13 07:28 | NUR ---
ASSUMPTION OF CARE: THIS RN ASSUMED CARE OF PATIENT. ASLEEP DURING SHIFT CHANGE. LYING SUPINE IN BED. BREATHING EVEN AND UNLABORED ON ROOM AIR. BED IN LOWEST POSITION. CALL LIGHT WITHIN REACH. ACUTE NEEDS MET.
[2025-02-13 07:48] VITALS: BP 88/67
[2025-02-13] MEDS ORDERED: Potassium Chloride 10 Meq Tablet SA PO SCH (08:00)
[2025-02-13] MEDS ORDERED: Sertraline HCl 50 MG Tab PO SCH (09:00)
[2025-02-13] MEDS ORDERED: Aspirin 81 MG Chew PO SCH (09:00)
[2025-02-13] MEDS ORDERED: Furosemide 40 MG Tab PO SCH (09:00)
[2025-02-13] MEDS ORDERED: POTA10T PO (12:26)
[2025-02-13] MEDS ORDERED: MEROPENEM500 M1 IV (12:26)
[2025-02-13] MEDS ORDERED: PERISHIELD OIN452 GM TOP (12:28)
[2025-02-13 15:17] VITALS: BP 106/70
--- NOTE | 2025-02-13 16:53 | NUR ---
DISCHARGE SUMMARY: A&Ox3-4. PLEASANT AND COOPERATIVE WITH MOST CARE. HAS NOT UTILIZED CALL LIGHT SYSTEM THIS SHIFT. ABLE TO ADVOCATE NEEDS EFFECTIVELY. WHEELCHAIR AT BASELINE; HAS NOT AMBULATED. 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 LBM TODAY. MEDS WHOLE c FLUIDS. C/O CHRONIC PAIN R/T RIB Fx's. ACCEPTED TO [facility]. REPORT TO [facility]. IV x2 AND PUREWICK REMOVED BY FIDEL CERVANTES. ATTENDS CHANGED AND PT TRANSFERRED TO W/C VIA [facility]. LEFT FLOOR AT 1615 WITH ALL BELONGINGS AND DISCHARGE PACKET, ESCORTED BY [facility] VIA WHEELCHAIR.
--- NOTE | 2025-02-13 17:53 | NUR ---
CALL FROM [facility] NURSE @ [facility]: PER MED REC, PT SUPPOSED TO HAVE IV ABx q8h x5 DAYS AND WAS SENT WITHOUT LINE. NOT NOTIFIED OF THIS BY [facility] TESTER AND CHARGE, WHO DID MED REC, WAS UNAWARE, WELL. CALL TO DR BONILLA PADRON STATED YES, PT TO HAVE IV ABx Q8H x5 DAYS. CALL TO [facility]: PIV WOULD SUFFICE. NOBODY THERE RIGHT NOW ABLE TO PLACE PIV. LAST DOSE @ 1330; SHE WILL ASK DON OR PLACE ONE IF ABLE.
== END 2025-02-13 16:36 | DRG 871 ==
LOC: ER 10:13 → MEDS 14:57 → PCU 20:00 → MEDS 02-11 10:28
PROVIDERS: Emergency Medicine; ADMIT Internal Medicine
DX: A41.51 Sepsis due to Escherichia coli [E. coli] (principal); R65.21 Severe sepsis with septic shock; N39.0 Urinary tract infection, site not specified; E87.1 Hypo-osmolality and hyponatremia; J96.11 Chronic respiratory failure with hypoxia; N17.9 Acute kidney failure, unspecified; Z68.1 Body mass index [BMI] 19.9 or less, adult; Z16.12 Extended spectrum beta lactamase (ESBL) resistance; I50.22 Chronic systolic (congestive) heart failure; A41.59 Other Gram-negative sepsis; E78.5 Hyperlipidemia, unspecified; K21.9 Gastro-esophageal reflux disease without esophagitis; F43.10 Post-traumatic stress disorder, unspecified; Z96.631 Presence of right artificial wrist joint; I25.10 Atherosclerotic heart disease of native coronary artery without angina pectoris; R54 Age-related physical debility; I45.10 Unspecified right bundle-branch block; B96.1 Klebsiella pneumoniae [K. pneumoniae] as the cause of diseases classified elsewhere; D69.6 Thrombocytopenia, unspecified; E87.8 Other disorders of electrolyte and fluid balance, not elsewhere classified; R62.7 Adult failure to thrive; L89.892 Pressure ulcer of other site, stage 2; E11.622 Type 2 diabetes mellitus with other skin ulcer; R33.9 Retention of urine, unspecified; R29.6 Repeated falls; I25.2 Old myocardial infarction; Z85.51 Personal history of malignant neoplasm of bladder; Z88.8 Allergy status to other drugs, medicaments and biological substances; Z79.82 Long term (current) use of aspirin; Z79.899 Other long term (current) drug therapy; Z79.84 Long term (current) use of oral hypoglycemic drugs; Z79.4 Long term (current) use of insulin; Z90.89 Acquired absence of other organs; Z98.890 Other specified postprocedural states; Z85.46 Personal history of malignant neoplasm of prostate; Z98.49 Cataract extraction status, unspecified eye
CPT/HCPCS: 36415; 51701; 71045; 80048; 80053; 81001; 82947; 83605; 85025; 85027; 87040; 87077; 87086; 87106; 87186; 93005; 93010; 94660; 94760; 94762; 96365-59; 96366-59; 97110; 97161; 97530; 99285-25; A6590; A9270; J0696; J1644; J2185; J7030; J7040